=== PATIENT | female | born 1995 | race Caucasian/White ===

== ENCOUNTER 2019-05-02 03:07 | Emergency (ER) | payer SELFPAY ==
[~2019-05-02] VITALS: Ht 162.6 cm; Wt 81.6 kg
--- NOTE | 2019-05-02 03:24 | ED.ADGEN ---
Past History Past Medical History Crohn's Adult General Chief Complaint Chief Complaint ".. I got this rash on my hands and forearms.. and some on my Rt. buttock area.. it started yesterday... nothing new.. except. I ve been off my Remicade.. a couple weeks now.. " HPI HPI Patient is a 23 year old female who presents with above hx and complaints new rash on hands, forearms and right gluteal area. Patient is 7 weeks . Recently moved into the area It has been off her Remicade move. Patient currently taking a vitamin. New exposures consist of her home was sprayed for fleas. No changes in soaps or foods or meds other than stopping Re micade. Patient does have a history of severe Crohn's and required Remicade for stabilization of her disease. Review of Systems Review of Systems Constitutional: Denies fever or chills [] Eyes: Denies change in visual acuity, redness, or eye pain [] HENT: Denies nasal congestion or sore throat [] Respiratory: Denies cough or shortness of breath [] Cardiovascular: No additional information not addressed in HPI [] GI: Denies abdominal pain, nausea, vomiting, bloody stools or diarrhea [] : Denies dysuria or hematuria [] Musculoskeletal: Denies back pain or joint pain [] Integument: Complaints of rash as per history of present illness Neurologic: Denies headache, focal weakness or sensory changes [] Endocrine: Denies polyuria or polydipsia [] All other systems were reviewed and found to be within normal limits, except as documented in this note. Family History Family History Noncontributory Current Medications Current Medications Current Medications Medications (Trade) Dose Ordered Sig/Jennifer Start Time Stop Time Status Last Admin Dose Admin Diphenhydramine HCl (Benadryl) 50 mg 1X ONCE 05/02/19 03:45 05/02/19 04:11 DC 05/02/19 03:45 50 MG Allergies Allergies Allergies Coded Allergies Type Severity Reaction Last Updated Verified No Known Drug Allergies 05/02/19 No See nursing for home meds and allergies Physical Exam Physical Exam Constitutional: Well developed, well nourished, mild distress, non-toxic appearance. [] HENT: Normocephalic, atraumatic, bilateral external ears normal, oropharynx moist, no oral exudates, nose normal. [] Eyes: PERRLA, EOMI, conjunctiva normal, no discharge. [] Neck: Normal range of motion, no tenderness, supple, no stridor. [] Cardiovascular:Heart rate regular rhythm, no murmur [] Lungs & Thorax: Bilateral breath sounds clear to auscultation [] Abdomen: Bowel sounds normal, soft, no tenderness, no masses, no pulsatile masses. [] Skin: Warm, dry, no erythema, nonspecific erythemic rash. Hands, forearms and right gluteal as per history of present illness. Back: No tenderness, no CVA tenderness. [] Extremities: No tenderness, no cyanosis, no clubbing, ROM intact, no edema. [] Neurologic: Alert and oriented X 3, normal motor function, normal sensory function, no focal deficits noted. [] Psychologic: Affect anxious, judgement normal, mood normal. [] Current Patient Data Vital Signs Vital Signs Date Time Temp Pulse Resp B/P (MAP) Pulse Ox O2 Delivery O2 Flow Rate FiO2 05/02/19 03:30 97.8 89 16 97 Room Air EKG EKG [] Radiology/Procedures Radiology/Procedures [] Course & Med Decision Making Course & Med Decision Making Pertinent Labs and Imaging studies reviewed. (See chart for details) Attempt to identify new exposures. Must follow-up and consider restarting Remicade. May be having a hyperimmune response since she recently stopped Remicade. May be a little take Benadryl 25-50 mg 4 times a day for itching. Would start a vitamin. Follow-up primary.. [] Final Impression Final Impression 1. Rash 2. Hx. of Moder to Severe Crohn's- previous on Remicade 3. Hx 7 weeks [] Dragon Disclaimer Dragon Disclaimer This electronic medical record was generated, in whole or in part, using a voice recognition dictation system. Dragon Disclaimer This chart was dictated in whole or in part using Voice Recognition software in a busy, high-work load, and often noisy Emergency Department environment. It m ay contain unintended and wholly unrecognized errors or omissions. PAO BOWLING MD May 02, 2019 03:24
[2019-05-02 03:30] VITALS: BP 107/61
[2019-05-02] MEDS ORDERED: diphenhydrAMINE HCL 25 MG CAPSULE PO ONE (03:45)
== END 2019-05-02 04:15 | disposition home or self-care (01) ==
LOC: ER 03:07
DX: O99.711 Diseases of the skin and subcutaneous tissue complicating pregnancy, first trimester (principal); R21 Rash and other nonspecific skin eruption; Z3A.01 Less than 8 weeks gestation of pregnancy
CPT/HCPCS: 99282; Q0163

== ENCOUNTER 2021-05-21 07:11 | Emergency (ER) | payer MEDICAID, OTHER ==
[~2021-05-21] VITALS: Ht 162.6 cm; Wt 86.0 kg
[2021-05-21 07:23] VITALS: BP 110/69
[2021-05-21] MEDS ORDERED: IV NORMAL SALINE 1,000ML 1,000 ML IV ONE (08:00)
--- NOTE | 2021-05-21 08:17 | PHYS DOC ---
Past History Past Medical History: Other Additional Past Medical Histor: CROHN'S COLITIS, C-DIFF Past Surgical History: Additional Past Surgical Histo: FECAL TRANSPLANT Smoking: Non-smoker Alcohol Use: None Drug Use: None General Adult EDM: Chief Complaint: ABDOMINAL PAIN HPI: HPI: 25-year-old female with history of Crohn's disease presents to the ED with abdominal pain. Patient states she has felt the abdominal pain for the last 3 days, the pain is constant, and is located between her umbilicus and scar. The abdominal pain feels better when she applies light pressure, the pain feels worse when her baby moves. Patient is 30 weeks , her neon tube bender is Dr. Celestin. Patient states the abdominal pain feels like pressure. Denies any diarrhea, vaginal bleeding, fevers, vomiting or constipation. Reports nausea and headache. In addition to her abdominal pain, patient expressed concern for exposure to COVID-19 virus from her mother over . Patient's mother tested positive for COVID-19 on May 19, 2021, and was symptomatic with fevers loss of taste and smell, and abdominal pain. Patient stated her wo rkplace requires a negative Covid test for her to return to work. Patient denies any other medical concerns at this time, and is in no acute distress. Review of Systems: Review of Systems: Constitutional: Denies fever or chills Eyes: Denies redness or eye pain HENT: Denies nasal congestion or sore throat Respiratory: Denies cough or shortness of breath Cardiovascular: Denies chest pain or palpitations GI: Reports abdominal pain and nausea. Denies vomiting : Denies dysuria or hematuria Musculoskeletal: Denies back pain or joint pain Integument: Denies rash or skin lesions Neurologic: Denies headache, focal weakness or sensory changes Complete systems were reviewed and found to be within normal limits, except as documented in this note. Allergies: Allergies: Allergies Coded Allergies Type Severity Reaction Last Updated Verified No Known Drug Allergies 05/02/19 No Physical Exam: PE: Constitutional: Well developed, well nourished, no acute distress, non-toxic appearance HENT: Normocephalic, atraumatic Eyes: PERRL, EOMI, conjunctiva normal, no discharge Neck: Normal range of motion, no tenderness, supple Lungs & Thorax: No respiratory distress, equal chest rise and fall Skin: Warm, dry, no erythema, no rash Extremities: No tenderness, ROM intact, no edema Neurologic: Alert and oriented X 3, normal motor function, normal sensory function, no focal deficits noted Psychologic: Affect normal, judgment normal Current Patient Data: Vital Signs: Vital Signs Date Time Temp Pulse Resp B/P (MAP) Pulse Ox O2 Delivery O2 Flow Rate FiO2 05/21/21 07:23 97.7 100 110/69 (83) 97 Room Air EKG: EKG: [] Radiology/Procedures: Radiology/Procedures: [] Heart Score: C/O Chest Pain: No Course & Med Decision Making: Course & Med Decision Making 25-year-old female with history of Crohn's disease presents to the ED with abdominal pain. Due to 30-week , ultrasound ordered to monitor . For concern of COVID-19 exposure, rapid antigen COVID-19 test and PCR COVID-19 test ordered. Laboratory: Rapid antigen COVID-19 test negative. Imaging: There is a single live fetus in cephalic position. Cardiac activity is visualized and documented at a rate of 122 beats per minute. The placenta is posterior without placenta previa. The amniotic fluid is normal for gestational stage. The amniotic fluid index is 12.47. The cervix measures 3.2 cm Current measurements are: BPD - 7.4 cm = 29 weeks 5 days HC - 27.7 cm = 30 weeks 2 days AC - 26 cm =30 weeks 1 day FL - 5.7 cm = 30 weeks 1 days The gestational size based on todays measurements is 30 weeks 1 day. The estimated weight is 1510+/- 223 gm. This is at the 44 percentile for the expected gestational age.All measured ratios and indices are within normal limits.The estimated date of delivery is 07/29/21 IMPRESSION: Single live intrauterine gestation in cephalic position with an estimated gestational age of 30 weeks, 1 day and estimated date of delivery 07/29/2021 Electronically signed by: Larry Millan MD (05/21/2021 8:50 AM) [id number] DICTATED AND SIGNED BY: LARRY MILLAN MD DATE: 05/21/21 0845 Patient stable for discharge with outpatient follow-up with PCP and neon tube bender. Discussed findings and plan with patient, who acknowledges understanding and agreement. Page Disclaimer: [employer]ard Disclaimer: This electronic medical record was generated, in whole or in part, using a voice recognition dictation system. Departure Departure: Impression: Primary Impression: Abdominal pain during Qualified Codes: O26.893 - Other specified related conditions, third trimester; R10.9 - Unspecified abdominal pain Additional Impression: Exposure to COVID-19 virus Disposition: 01 HOME / SELF CARE / HOMELESS Condition: STABLE Referrals: JACQUELYN KAMINSKI (PCP) Patient Instructions: Abdominal Pain During , [id number] Additional Instructions: YOUR RAPID COVID test was negative. A PCR test is still pending. WITH your vaccination status, it is unlikely you have COVID but not guaranteed. YOUR PCR test should result in next 1-2 days. You have been tested for or diagnosed with COVID-19. It is an infection caused by a new type of coronavirus. COVID-19 will cause cold-like or mild flu symptoms in most. It can cause more severe symptoms like problems breathing in some. There is no treatment for COVID-19. The body will clear the infection over time. Self-care will help to ease discomfort. Steps to Take: Self-Care Rest as needed. Healthy habits may help you feel better. Steps include: Choose healthy foods including fruits and vegetables. Drink water throughout the day. Get plenty of sleep each night. If you smoke, try to quit. It may ease breathing. Avoid alcohol. Keep Others Healthy The virus can spread to others. Droplets are released every time you sneeze or cough. The droplets can get into the mouth, nose, or eyes of people near you and lead to infection. To lower the chances of spreading COVID-19 to others: Stay at home until your doctor has said it is safe to leave. If you tested positive this will mean staying isolated until both of the following are true: At least 7 days have passed since the start of illness. You are free of fever for at least 72 hours without the use of medicine. During this time: - Avoid public areas, events, or transportation. Do not return to work or school until your doctor has said it is safe to do so. - Call ahead if you need to go to a medical center. Let them know you may have COVID-19. It will help them guide you where to go. They may also ask you to wear a facemask when you come to the office. - If you call for emergency medical services, let them know you may have COVID- 19. While at home: - Try to avoid close contact with others. Stay about 6 feet away. - If possible, spend most of your time in a separate room from others. - Use a face mask if you will be in close contact with others such as sharing a room or vehicle. - Have someone wipe down common surfaces in the home. Use household strike operations officer every day on areas like doorknobs, counters, or sinks. - Cough or sneeze into a tissue. Throw the tissue away right after use. If a tissue is not available, cough or sneeze into your elbow. - Wash your hands often. Wash them after sneezing or coughing. Use soap and water and wash for at least 20 seconds. Alcohol based hand hide cleaner can be used if soap and water is not available. - Do not prepare food for others. Avoid sharing personal items like forks, spoons, or toothbrushes. - Avoid close contact with pets while you are sick. There is no evidence of the virus passing to pets. This is a safety step until more is known about this virus. Isolation can be frustrating. Social interaction can help. Keep in touch with friends and family through phone and tech options. You can still interact with others in your home, just keep a safe distance of about 6 feet. Follow-up: Your doctors office will check in with you to see if there are any changes in your health. You may be asked to keep track of symptoms to share with them. They will also l et you know when you are clear to be in public again. Problems to Look Out For: Contact your doctor if your recovery is not going as you expect. Get emergency care if you have problems such as: - Trouble breathing - Nonstop chest pain or pressure - Changes in awareness, confusion, or problems waking - Lips or face have bluish color - Worsening of symptoms If you think you have an emergency, call for emergency medical services right away. As taken from [facility] RADHA Marcos DO May 21, 2021 08:16
[2021-05-21 08:38] LABS: BASO % 0 % (0-3); EOS % 0 % (0-3); HEMOGLOBIN 11.6 g/dL (12.0-15.5); LYMPH # 1.4 x10^3/uL (1.0-4.8); LYMPH % 20 % (24-48); MEAN CORPUSCULAR HEMOGLOBIN 29 pg (25-35); MEAN CORPUSCULAR HGB CONC 33 g/dL (31-37); MEAN CORPUSCULAR VOLUME 87 fL (79-100); MONO # 0.8 x10^3/uL (0.0-1.1); MONO % 11 % (0-9); NEUT # 4.7 x10^3uL (1.8-7.7); NEUT % 68 % (31-73); PLATELET COUNT 221 x10^3/uL (140-400); RED BLOOD COUNT 4.04 x10^6/uL (3.50-5.40); RED CELL DISTRIBUTION WIDTH 13.5 % (11.5-14.5); WHITE BLOOD COUNT 6.9 x10^3/uL (4.0-11.0)
[2021-05-21 08:45] LABS: CALCIUM 8.7 mg/dL (8.5-10.1); CREATININE 0.7 mg/dL (0.6-1.0); GFR 102.8; POTASSIUM 3.5 mmol/L (3.5-5.1)
[2021-05-21 08:51] LABS: ALBUMIN 2.7 g/dL (3.4-5.0); ALBUMIN/GLOBULIN RATIO 0.6 (1.0-1.7); MAGNESIUM 1.9 mg/dL (1.8-2.4); TOTAL PROTEIN 7.5 g/dL (6.4-8.2)
--- NOTE | 2021-05-21 08:52 | RAD ---
CLINICAL HISTORY: abdominal pain at 30 weeks COMPARISON: None available. TECHNIQUE: Limited transabdominal ultrasound of the uterus was performed. FINDINGS: There is a single live fetus in cephalic position. Cardiac activity is visualized and documented at a rate of 122 beats per minute. The placenta is posterior without placenta previa. The amniotic fluid is normal for gestational stag e. The amniotic fluid index is 12.47. The cervix measures 3.2 cm Current measurements are: BPD - 7.4 cm = 29 weeks 5 days HC - 27.7 cm = 30 weeks 2 days AC - 26 cm =30 weeks 1 day FL - 5.7 cm = 30 weeks 1 days The gestational size based on todays measurements is 30 weeks 1 day. The estimated weight is 1510+/- 223 gm. This is at the 44 percentile for the expected gestation al age. All measured ratios and indices are within normal limits. The estimated date of delivery is 07/29/21 IMPRESSION: Single live intrauterine gestation in cephalic position with an estimated gestational age of 30 weeks , 1 day and estimated date of delivery 07/29/2021 Electronically signed by: Larry Hope MD (05/21/2021 8:50 AM) [email or web address]
[2021-05-21 10:28] LABS: BACTERIA,URINE FEW /HPF (0-FEW); BILIRUBIN,URINE NEG (NEG); CLARITY,URINE HAZY; COLOR,URINE YELLOW; GLUCOSE,URINE NEG (NEG); NITRITE,URINE NEG (NEG); RBC,URINE OCC /HPF (0-2); SQUAMOUS EPITHELIAL CELL,UR MANY /LPF; UROBILINOGEN,URINE 0.2 mg/dL (0.2 mg/dL)
[2021-05-21] MEDS ORDERED: ACETAMINOPHEN 500 MG TABLET PO ONE (10:30)
--- NOTE | 2021-05-23 10:19 | NUR ---
Attempt to contact with covid results. No answer. Message left.
--- NOTE | 2021-05-23 12:04 | NUR ---
Patient notified of covid results
== END 2021-05-21 11:00 | disposition home or self-care (01) ==
LOC: ER 07:11
DX: O26.893 Other specified pregnancy related conditions, third trimester (principal); R10.9 Unspecified abdominal pain; Z3A.30 30 weeks gestation of pregnancy; Z20.822 Contact with and (suspected) exposure to COVID-19
CPT/HCPCS: 36415; 76815; 80053; 81001; 83690; 83735; 85025; 87426; 96360; 99284; J7030; U0003